=== PATIENT | female | born 1975 | race African-American/Black ===

== ENCOUNTER 2020-05-19 23:31 | Emergency (ER) | payer MEDICAID ==
[~2020-05-19] VITALS: Ht 172.7 cm; Wt 95.0 kg
[2020-05-19] MEDS ORDERED: KETOROLAC 30MG/ML VIAL IV STA (23:44)
[2020-05-20] MEDS ORDERED: HALOPERIDOL LACTATE 5MG/ML VIAL IM ONE
[2020-05-20 00:07] LABS: HEMATOCRIT. 26.9 % (36.0-48.0); HEMOGLOBIN. 8.1 g/dL (12.0-16.0); MEAN CORPUSCULAR HEMOGLOBIN 18.9 pg (28.0-32.0); MEAN CORPUSCULAR VOLUME 62.4 fL (81.0-99.0); MEAN PLATELET VOLUME 8.9 fl (7.4-10.4); PLATELET 355 x1000/uL (130-400); RED CELL DISTRIBUTION WIDTH 22.1 % (11.6-14.6)
[2020-05-20 00:08] LABS: CHLORIDE 110 mEq/L (98-107)
[2020-05-20 00:12] LABS: ETHANOL BLOOD < 10 mg/dL
[2020-05-20 02:27] LABS: CLARITY URINE CLOUDY (CLEAR); COLOR URINE DK YELLOW (YELLOW); KETONES URINE 4+ (NEGATIVE); LEUKOCYTE ESTERASE URINE 1+ (NEGATIVE); NITRITE URINE NEGATIVE (NEGATIVE); OCCULT BLOOD URINE 3+ (NEGATIVE); PROTEIN URINE 1+ (NEGATIVE); SPECIFIC GRAVITY URINE 1.035 (1.005-1.030); UROBILINOGEN URINE 0.2 E.U./dL (0.2-1.0)
[2020-05-20 02:41] LABS: *AMPHETAMINES SCREEN URINE NEGATIVE (NEGATIVE); *BARBITURATES SCREEN URINE NEGATIVE (NEGATIVE); *BENZODIAZEPINES SCREEN URINE NEGATIVE (NEGATIVE); *COCAINE SCREEN URINE NEGATIVE (NEGATIVE); OPIATES URINE SCREEN NEGATIVE (NEGATIVE); PHENCYCLIDINE URINE SCREEN NEGATIVE (NEGATIVE)
[2020-05-20 02:42] LABS: METHADONE URINE SCREEN NEGATIVE (NEGATIVE)
[2020-05-20 02:45] LABS: CANNABINOID URINE SCREEN PRESUMTIVE POSITIVE (NEGATIVE)
[2020-05-20 04:47] VITALS: BP 132/86
[2020-05-20 06:15] LABS: PLATELET ESTIMATE NORMAL
== END 2020-05-20 04:47 | disposition home or self-care (01) ==
LOC: ER 23:31 → EDBD 23:31 → ER 05-20 04:47
DX: R11.10 Vomiting, unspecified (principal); F12.90 Cannabis use, unspecified, uncomplicated
CPT/HCPCS: 36415; 74176; 80053; 80305; 80320; 81003; 81025; 82962; 83690; 85025; 93005; 96372; 96374; 99285; J1630; J1885; G0480

== ENCOUNTER 2021-01-09 22:06 | Inpatient (IN) | payer MEDICAID ==
[~2021-01-09] VITALS: Ht 165.1 cm; Wt 97.1 kg
[2021-01-09] MEDS ORDERED: ONDANSETRON HCL 4MG/2ML INJ IV ONE (22:30)
[2021-01-09] MEDS ORDERED: HALOPERIDOL LACTATE 5MG/ML VIAL IM ONE (22:30)
[2021-01-09 22:52] LABS: HEMATOCRIT. 24.7 % (36.0-48.0); HEMOGLOBIN. 7.1 g/dL (12.0-16.0); MEAN CORPUSCULAR HEMOGLOBIN 17.3 pg (28.0-32.0); MEAN CORPUSCULAR VOLUME 60.1 fL (81.0-99.0); MEAN PLATELET VOLUME 8.7 fl (7.4-10.4); PLATELET 360 x1000/uL (130-400); RED BLOOD CELL COUNT 4.11 mill/uL (4.2-5.4); RED CELL DISTRIBUTION WIDTH 22.9 % (11.6-14.6)
[2021-01-09 23:02] LABS: CHLORIDE 109 mEq/L (98-107)
[2021-01-09 23:37] LABS: PLATELET ESTIMATE NORMAL
[2021-01-09] MEDS ORDERED: PIPERACILLIN/TAZOBACTAM 3.375GM/50ML PREMIX IV ONE (23:45)
[2021-01-09] MEDS ORDERED: VANCOMYCIN 1 G PREMIX 200 ML IV NR (23:45)
[2021-01-09] MEDS ORDERED: PIPERACILLIN/TAZ 3.375G PREMIX 50 ML IV NR (23:45)
[2021-01-10 02:57] LABS: *AMPHETAMINES SCREEN URINE NEGATIVE (NEGATIVE); *BARBITURATES SCREEN URINE NEGATIVE (NEGATIVE); *BENZODIAZEPINES SCREEN URINE NEGATIVE (NEGATIVE)
[2021-01-10 02:58] LABS: *COCAINE SCREEN URINE NEGATIVE (NEGATIVE); METHADONE URINE SCREEN NEGATIVE (NEGATIVE); OPIATES URINE SCREEN NEGATIVE (NEGATIVE); PHENCYCLIDINE URINE SCREEN NEGATIVE (NEGATIVE)
[2021-01-10 03:04] LABS: CANNABINOID URINE SCREEN PRESUMTIVE POSITIVE (NEGATIVE)
[2021-01-10] MEDS: ONDANSETRON HCL 4MG/2ML INJ IV PRN (09:58)
[2021-01-10] MEDS: HYDROCODONE/ACETAMINOPHEN 5/325MG TABLET PO PRN ×2 (09:58→22:33)
[2021-01-10] MEDS ORDERED: IPRATROPIUM/ALBUTEROL 0.5-3(2.5)MG/3ML NEB HHN PRN (10:00)
[2021-01-10] MEDS ORDERED: NALOXONE HCL 0.4MG/ML VIAL IV PRN (10:00)
[2021-01-10] MEDS ORDERED: ACETAMINOPHEN 325MG TABLET PO PRN ×2 (10:00)
[2021-01-10] MEDS ORDERED: DOCUSATE SODIUM 100MG CAPSULE PO PRN (10:00)
[2021-01-10] MEDS: SODIUM CHLORIDE 0.9% 1,000 ML IV SCH ×2 (12:32→20:41)
[2021-01-10 14:00] VITALS: BP 138/81
[2021-01-10 16:00] VITALS: BP 144/76
[2021-01-10] MEDS ORDERED: INFLUENZA VACCINE 05/PF 0.5 ML SYRINGE IM ONE (16:45)
[2021-01-10 20:00] VITALS: BP 162/102
[2021-01-10 20:19] LABS: HEMATOCRIT. 25.3 % (36.0-48.0); HEMOGLOBIN. 7.1 g/dL (12.0-16.0); MEAN CORPUSCULAR HEMOGLOBIN 16.6 pg (28.0-32.0); MEAN CORPUSCULAR VOLUME 59.7 fL (81.0-99.0); MEAN PLATELET VOLUME 9.1 fl (7.4-10.4); PLATELET 384 x1000/uL (130-400); RED BLOOD CELL COUNT 4.24 mill/uL (4.2-5.4); RED CELL DISTRIBUTION WIDTH 23.2 % (11.6-14.6)
[2021-01-10 20:32] LABS: TOTAL IRON BINDING CAPACITY 399 ug/dL (250-450)
[2021-01-10] MEDS: CLONIDINE 0.1MG TABLET PO PRN (20:41)
[2021-01-10 20:45] LABS: FOLIC ACID (FOLATE) SERUM 5.2 ng/mL (>5.38); HCG SCREEN NEGATIVE
[2021-01-10 21:18] LABS: PLATELET ESTIMATE NORMAL
[2021-01-11] VITALS: BP 159/91
[2021-01-11] MEDS: LORAZEPAM 0.5MG TABLET PO PRN ×2 (00:02→23:10)
[2021-01-11 04:00] VITALS: BP 125/81
[2021-01-11] MEDS ORDERED: INFLUENZA VACCINE 05/PF 0.5 ML SYRINGE IM ONE (07:00)
[2021-01-11 07:26] LABS: HEMATOCRIT. 24.6 % (36.0-48.0); HEMOGLOBIN. 7.1 g/dL (12.0-16.0); MEAN CORPUSCULAR HEMOGLOBIN 17.1 pg (28.0-32.0); MEAN CORPUSCULAR VOLUME 59.4 fL (81.0-99.0); MEAN PLATELET VOLUME 9.1 fl (7.4-10.4); PLATELET 377 x1000/uL (130-400); RED BLOOD CELL COUNT 4.13 mill/uL (4.2-5.4); RED CELL DISTRIBUTION WIDTH 22.9 % (11.6-14.6)
[2021-01-11 07:49] LABS: CHLORIDE 104 mEq/L (98-107)
[2021-01-11 08:00] VITALS: BP 129/78
[2021-01-11] MEDS: HYDROCODONE/ACETAMINOPHEN 5/325MG TABLET PO PRN ×3 (09:41→20:39)
[2021-01-11] MEDS: ONDANSETRON HCL 4MG/2ML INJ IV PRN ×2 (09:41→20:38)
[2021-01-11 09:49] LABS: CLARITY URINE TURBID (CLEAR); COLOR URINE YELLOW (YELLOW); KETONES URINE TRACE (NEGATIVE); LEUKOCYTE ESTERASE URINE NEGATIVE (NEGATIVE); NITRITE URINE NEGATIVE (NEGATIVE); OCCULT BLOOD URINE NEGATIVE (NEGATIVE); PH URINE 6.5 (4.5-8.0); PROTEIN URINE 1+ (NEGATIVE); SPECIFIC GRAVITY URINE 1.025 (1.005-1.030); UROBILINOGEN URINE 0.2 E.U./dL (0.2-1.0)
[2021-01-11 12:00] VITALS: BP 138/65
[2021-01-11] MEDS: SODIUM CHLORIDE 0.9% 1,000 ML IV SCH (12:52)
[2021-01-11 16:00] VITALS: BP 137/63
[2021-01-11 17:52] LABS: PLATELET ESTIMATE NORMAL
[2021-01-11 20:00] VITALS: BP 156/74
[2021-01-11] MEDS: CLONIDINE 0.1MG TABLET PO PRN (23:18)
[2021-01-12] VITALS (11 sets, daily range): BP systolic 127–146; BP diastolic 58–90
[2021-01-12] MEDS: SODIUM CHLORIDE 0.9% 1,000 ML IV SCH ×2 (04:30→16:00)
[2021-01-12] MEDS: HYDROCODONE/ACETAMINOPHEN 5/325MG TABLET PO PRN (05:17)
[2021-01-12 07:54] LABS: CHLORIDE 105 mEq/L (98-107)
[2021-01-12 07:59] LABS: MEAN CORPUSCULAR HEMOGLOBIN 17.4 pg (28.0-32.0); MEAN CORPUSCULAR VOLUME 58.8 fL (81.0-99.0); MEAN PLATELET VOLUME 9.4 fl (7.4-10.4); PLATELET 292 x1000/uL (130-400); RED BLOOD CELL COUNT 3.53 mill/uL (4.2-5.4); RED CELL DISTRIBUTION WIDTH 23.1 % (11.6-14.6)
[2021-01-12 08:39] LABS: HEMATOCRIT. 20.7 % (36.0-48.0); HEMOGLOBIN. 6.1 g/dL (12.0-16.0)
[2021-01-12 16:16] LABS: PLATELET ESTIMATE NORMAL
[2021-01-12 20:55] LABS: HEMATOCRIT. 24.3 % (36.0-48.0); HEMOGLOBIN. 7.3 g/dL (12.0-16.0); MEAN CORPUSCULAR HEMOGLOBIN 18.8 pg (28.0-32.0); MEAN CORPUSCULAR VOLUME 62.4 fL (81.0-99.0); MEAN PLATELET VOLUME 8.9 fl (7.4-10.4); PLATELET 284 x1000/uL (130-400); RED CELL DISTRIBUTION WIDTH 26.6 % (11.6-14.6)
[2021-01-12 21:09] LABS: INR 1.1
[2021-01-12 22:06] LABS: PLATELET ESTIMATE NORMAL
[2021-01-13 00:35] VITALS: BP 121/67
[2021-01-13] MEDS: SODIUM CHLORIDE 0.9% 1,000 ML IV SCH (04:27)
[2021-01-13 04:29] VITALS: BP 122/73
[2021-01-13 08:00] VITALS: BP 131/78
[2021-01-13 10:14] LABS: HEMATOCRIT. 24.2 % (36.0-48.0); HEMOGLOBIN. 7.3 g/dL (12.0-16.0); MEAN CORPUSCULAR HEMOGLOBIN 18.8 pg (28.0-32.0); MEAN CORPUSCULAR VOLUME 62.3 fL (81.0-99.0); MEAN PLATELET VOLUME 8.8 fl (7.4-10.4); PLATELET 279 x1000/uL (130-400); RED BLOOD CELL COUNT 3.88 mill/uL (4.2-5.4); RED CELL DISTRIBUTION WIDTH 26.7 % (11.6-14.6)
[2021-01-13 10:38] LABS: CHLORIDE 104 mEq/L (98-107)
[2021-01-13] MEDS ORDERED: FERR325T6 MT (10:59)
[2021-01-13 11:12] VITALS: BP 131/78
[2021-01-14 14:48] LABS: PLATELET ESTIMATE NORMAL
== END 2021-01-13 12:00 | disposition home or self-care (01) | DRG 720 ==
LOC: ER 22:06 → EDBEDREQ 23:38 → MICUSO 01-10 02:01 → EDBEDREQ 01-10 02:22 → EDBEDREQTM 01-10 02:22 → EDBEDREQDT 01-10 02:22 → 7WST 01-10 13:56 → 7EST 01-10 23:53
PROVIDERS: ADMIT Internal Medicine; ATTEND Internal Medicine
PROC: 30233N1 Transfusion of Nonautologous Red Blood Cells into Peripheral Vein, Percutaneous Approach (ICD-10-PCS; principal; 2021-01-12)
DX: A41.9 Sepsis, unspecified organism (principal); E87.2 Acidosis; J18.9 Pneumonia, unspecified organism; D50.9 Iron deficiency anemia, unspecified; D25.9 Leiomyoma of uterus, unspecified; F12.90 Cannabis use, unspecified, uncomplicated; R11.2 Nausea with vomiting, unspecified; Z20.822 Contact with and (suspected) exposure to COVID-19; G89.29 Other chronic pain; R10.9 Unspecified abdominal pain; D72.829 Elevated white blood cell count, unspecified; E66.01 Morbid (severe) obesity due to excess calories; K57.90 Diverticulosis of intestine, part unspecified, without perforation or abscess without bleeding; Z68.35 Body mass index [BMI] 35.0-35.9, adult; Z71.3 Dietary counseling and surveillance
CPT/HCPCS: 36415; 74176; 76830; 76856; 80048; 80053; 80305; 81003; 82607; 82728; 82746; 83540; 83550; 83605; 84145; 84703; 85025; 85384; 86850; 86900; 86920; 90686; 93005; 99285; C1893; J1630; J2405; J2543; J3370; J7030; P9016; U0003; U0005